=== PATIENT | female | born 2000 | race Caucasian/White ===

== ENCOUNTER 2024-05-09 00:06 | Emergency (ER) | payer OTHER, SELFPAY ==
[2024-05-09 00:11] VITALS: BP 134/90
[2024-05-09 00:34] VITALS: BP 111/81; BMI 26.7
[2024-05-09 00:44] LABS: Urine Albumin Negative (Neg - Trace); Urine Bilirubin Negative (Negative); Urine Character Clear (Clear); Urine Color Yellow; Urine Glucose Negative (Negative); Urine Ketone Negative (Negative); Urine Leukocyte Negative (Negative); Urine Nitrite Negative (Negative); Urine Occult Blood Negative (Negative); Urine Urobilinogen Negative (Neg - 1+)
[2024-05-09 00:46] LABS: HCG, Urine Qualitative Screen Negative
--- NOTE | 2024-05-09 00:46 | ED.GENMED ---
History of Present Illness
<DO Addy Shoemaker Last Filed: 05/09/24 02:22>
General
Chief Complaint: Abdominal Pain
Source: patient and family
Exam Limitations: none
Time Seen by Provider: 05/09/24 00:34
Nursing documentation reviewed up to this point in time: agreed with
History of Present Illness
History of Present Illness:
23-year-old female presents emergency room complaining of right-sided abdominal pain worse in the right lower quadrant since yesterday. Intermittent nausea. Pain is constant.
Past History
<DO Addy Shoemaker Last Filed: 05/09/24 02:22>
Past History
ED Past Medical History: None
ED Past Surgical History: Orthopedic (Left wrist surgery)
Social History
Tobacco: Non-smoker
Alcohol: None
Drug: None
Living: with family
Review of Systems
<DO Addy Shoemaker Last Filed: 05/09/24 02:22>
Review of Systems
Allergies reviewed?: Yes
All Other Systems: Not applicable
Constitutional: Reports no symptoms
EENT: Reports no symptoms
Respiratory: Reports no symptoms
Cardiac: Reports no symptoms
ABD/GI: Reports abdominal pain and nausea
: Reports no symptoms
Musculoskeletal: Reports no symptoms
Skin: Reports no symptoms
Neurological: Reports no symptoms
Endocrine: Reports no symptoms
Hematologic/Lymphatic: Reports no symptoms
Psychiatric: Reports no symptoms
Phy Exam
<Jose E Callahan DO - Last Filed: 05/09/24 02:22>
Physical Exam
Physical Exam:
Physical Exam
General: no apparent distress, not acutely ill
Neck: supple. no meningeal signs. normal posterior pharynx
Heart: s1/s2 regular rate and rhythm, no murmur. equal radial
pulses.
HEENT: Pupils equal round reactive to light, EOMI
Lungs: no acute respiratory distress. clear bilaterally
Abdomen: normal bowel sounds. Right lower quadrant tenderness, no rebound or guarding. No CVAT
Neuro: alert and oriented. no focal neurological deficits
Skin: no rash
Psychiatric: well kept. interactive and cooperative
Extremities: no edema.
Course
<Jose E Callahan, DO - Last Filed: 05/09/24 02:22>
Orders/Labs/Results
Orders:
Orders
05/09/24 00:30
IV Insert/Care/Rem.- Treatment PRN
05/09/24 00:33
Test Result ONCE
05/09/24 00:36
HCG, Urine Qualitative Screen Urgent
Date Specimen was Collected: 05/09/24
Time Specimen was Collected: 00:33
Urinalysis Reflex To Culture Urgent
Date Specimen was Collected: 05/09/24
Time Specimen was Collected: 00:35
05/09/24 00:43
Complete Blood Count/With Diff Urgent
Comprehensive Metabolic Panel Urgent
Lipase Urgent
05/09/24 00:45
CT Abd/pelvis W Iv Cont Urgent
Comment:
Reason For Exam: RLQ abdominal pain since yesterday
0.9% Sodium Chloride 1000 ml [Nss] 1,000 ml IV BOLUS
Abnormal Lab Results
05/09/24
00:43
MPV 10.5 H fL
(7.4-10.4)
Absolute Monos (auto) 0.9 H 10^3/uL
(0.1-0.6)
Monocytes % 11.9 H %
(1.7-9.3)
05/09/24 00:43
05/09/24 00:43
Vital Signs
Initial and Last Documented VS:
Initial Vital Signs
Temp Pulse Resp BP Pulse Ox
98.1 F 70 18 134/90 100
05/09/24 00:11 05/09/24 00:11 05/09/24 00:11 05/09/24 00:11 05/09/24 00:11
Last Documented Vital Signs
Temp Pulse Resp BP Pulse Ox
98.1 F 69 20 107/70 96
05/09/24 00:11 05/09/24 02:26 05/09/24 01:00 05/09/24 02:26 05/09/24 02:26
<Lanette Green, DO - Last Filed: 05/09/24 02:47>
Orders/Labs/Results
Orders:
Orders
05/09/24 00:30
IV Insert/Care/Rem.- Treatment PRN
05/09/24 00:33
Test Result ONCE
05/09/24 00:36
HCG, Urine Qualitative Screen Urgent
Date Specimen was Collected: 05/09/24
Time Specimen was Collected: 00:33
Urinalysis Reflex To Culture Urgent
Date Specimen was Collected: 05/09/24
Time Specimen was Collected: 00:35
05/09/24 00:43
Complete Blood Count/With Diff Urgent
Comprehensive Metabolic Panel Urgent
Lipase Urgent
05/09/24 00:45
CT Abd/pelvis W Iv Cont Urgent
Comment:
Reason For Exam: RLQ abdominal pain since yesterday
0.9% Sodium Chloride 1000 ml [Nss] 1,000 ml IV BOLUS
Abnormal Lab Results
05/09/24
00:43
MPV 10.5 H fL
(7.4-10.4)
Absolute Monos (auto) 0.9 H 10^3/uL
(0.1-0.6)
Monocytes % 11.9 H %
(1.7-9.3)
05/09/24 00:43
05/09/24 00:43
Vital Signs
Initial and Last Documented VS:
Initial Vital Signs
Temp Pulse Resp BP Pulse Ox
98.1 F 70 18 134/90 100
05/09/24 00:11 05/09/24 00:11 05/09/24 00:11 05/09/24 00:11 05/09/24 00:11
Last Documented Vital Signs
Temp Pulse Resp BP Pulse Ox
98.1 F 69 20 107/70 96
05/09/24 00:11 05/09/24 02:26 05/09/24 01:00 05/09/24 02:26 05/09/24 02:26
<Jose E Callahan, DO - Last Filed: 05/09/24 02:22>
MDM/Problems Addressed
Differential Diagnosis Includes:
Appendicitis, cholecystitis, ovarian cyst
MDM/Problems Addressed:
23-year-old female with right lower quadrant abdominal pain, CT scan pending.
<Lanette Green, DO - Last Filed: 05/09/24 02:47>
*Radiology
Radiology exam reviewed: radiology read reviewed (CT abdomen pelvis shows no acute intra-abdominal pathology.)
*Pulse Oximetry
Patient hypoxic: no
*Critical Care Note
Total Time (30-74mins, 75-104mins- exclusive of procedures): Not Applicable
<Lanette Green, DO - Last Filed: 05/09/24 02:47>
Update Note
Update Note:
05/09/[address] shows no acute intra-abdominal pathology. No bowel obstruction or inflammation. Appendix is normal. No free air nor free fluid.
There is note of moderate stool throughout the colon and right-sided abdominal pain may be constipation related.
Overall patient appears comfortable, abdomen is soft without appreciable tenderness.
Labs are reassuringly normal as is urinalysis.
Recommend high-fiber diet, adding a daily Metamucil versus MiraLAX and staying well-hydrated on a daily basis.
Prompt follow-up with PCP for recheck.
ED Attending Note
<Jose E Callahan, DO - Last Filed: 05/09/24 02:22>
-
Portions of this chart may have been created with voice recognition software.� Occasional wrong word or��sound alike� substitutions may have occurred due to the inherent limitations of voice recognition software.
Discharge Plan
Departure
Patient Disposition: Home (Routine Discharge)
Date of Disposition: 05/09/24
Time of Disposition: 02:44
Patient with high blood pressure during this ER visit?: No
Condition: Good
Discharge Problem:
Acute abdominal pain in right lower quadrant, Constipation
Instructions: Constipation, Adult ED, Abdominal Pain
Prescriptions:
No Action
No Current Medications
0
Referrals:
Idania Adame MD [Family Provider] - Call in 1-3 days for appt
Interventions
Interventions:
*Risk Screen - Suicide Last Done: 05/09/24 00:11
*General Assessment Last Done: 05/09/24 00:35
*Neglect/Abuse Screening Last Done: 05/09/24 00:11
ED- Fall Risk Assessment Last Done: 05/09/24 00:46
*ED COVID-19 Vaccine History Last Done: 05/09/24 00:35
IS-Cwmxut-Xsyqliyker Assessment Last Done: 05/09/24 00:51
Discharge Date and Time
Print Language: ALGERIAN
[2024-05-09 00:48] LABS: % Basophils 0.6 % (0-2); % Eosinophils 1.8 % (0-6); % Immature Granulocytes 0.3 % (0-0.5); % Lymphocytes 41.2 % (20.5-51.1); % Monocytes 11.9 % (1.7-9.3); % Neutrophils 44.2 % (42.2-75.2); Absolute Eosinophils 0.1 10^3/uL (0-0.7); Absolute Monocytes 0.9 10^3/uL (0.1-0.6); Absolute Neutrophils 3.2 10^3/uL (1.4-6.5); Hematocrit 39.9 % (37.0-47.0); Mean Corp Hgb Conc. 35.1 g/dL (33.0-37.0); Mean Corpuscular Hgb 28.6 pg (27.0-31.0); Mean Corpuscular Volume 81.4 fL (81.0-99.0); Mean Platelet Volume 10.5 fL (7.4-10.4); Nucleated Red Blood Cells % 0 %; Platelet Count 229 10^3/uL (130-400); Red Cell Dist. Width 12.6 % (11.5-14.5); White Blood Cell Count 7.2 10^3/uL (4.8-10.8)
[2024-05-09] MEDS: NSS 1000 IV (00:48)
--- NOTE | 2024-05-09 00:52 | EDRN ---
Pt developed RLQ abd pain yesterday at around 1000. Pain waxes and wanes from dull to sharp. When pain peaks, pt feels nauseous. No vomiting. Appetite normal. Pt denies fever/chills/cough, cp, sob, constipation/diarrhea, urinary symptoms. No
abd surgeries.
[2024-05-09 01:00] VITALS: BP 101/63
[2024-05-09 01:18] LABS: ALT (SGPT) 24 U/L (0-35); AST (SGOT) 30 U/L (14-36); Albumin 4.2 g/dl (3.5-5.0); Alkaline Phosphatase 72 U/L (38-126); Blood Urea Nitrogen 15 mg/dl (7-17); Calcium 9.6 mg/dl (8.4-10.2); Carbon Dioxide 25 mmol/L (22-30); Chloride 106 mmol/L (98-107); Estimated Creatinine Clearance > 125 ml/min; Glucose 91 mg/dl (70-99); Lipase 64 U/L (23-300); Potassium 3.8 mmol/L (3.5-5.1); Sodium 139 mmol/L (135-145); Total Bilirubin 0.4 mg/dl (0.2-1.3); Total Protein 6.7 g/dl (6.3-8.2); eGFR > 60.00
[2024-05-09 02:26] VITALS: BP 107/70
== END 2024-05-09 02:59 | disposition home or self-care (01) ==
LOC: EMR 00:06
PROVIDERS: Emergency Medicine; EMERGENCY PHYSICIAN Emergency Medicine; FAMILY PHYSICIAN Family Medicine
DX: R10.31 Right lower quadrant pain (principal); K59.00 Constipation, unspecified
CPT/HCPCS: 99284; 74177; 80053; 81003; 81025; 83690; 85025; Q9967